=== PATIENT | female | born 1960 | race American Indian/Alaskan Native ===

== ENCOUNTER 2018-11-01 10:45 | Emergency (ER) | payer OTHER ==
[2018-11-01 13:16] LABS: ANION GAP 14.9; CHLORIDE,CL 103 mmol/L (101-111); SODIUM,NA 136 mmol/L (135-145)
[2018-11-01 13:38] VITALS: BP 121/67
--- NOTE | 2018-11-01 13:55 | EDM.PDOC ---
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 She states the bleeding has been spotting since yesterday. She states she has been in menopause for about 10 years. Patient takes Coumadin after a stroke 14 years ago and is concerned that she may begin to bleed much more. Patient denies dizziness, weakness, cramping, fever, or chills. Denies SOB, CP, N/V/D. Onset: Gradual - Related Data Allergies Allergy/AdvReac Type Severity Reaction Status Date / Time ibuprofen [From Motrin] Allergy Unknown Anaphylactic Verified 11/01/18 11:12 Shock Home Meds: Home Meds Fenofibrate Nanocrystallized [Tricor] 72.5 mg PO DAILY 10/25/16 [History] Warfarin Sodium [Coumadin] 10 mg PO .M,T,W,F,SA 10/25/16 [History] Warfarin [Coumadin] 12.5 mg PO .REED,TH 11/01/18 [History] Past Medical History HEENT History: Reports: Allergic Rhinitis, Sinusitis Cardiovascular History: Reports: None Respiratory History: Reports: None Other Respiratory History: pulmonary embolism Gastrointestinal History: Reports: GERD Genitourinary History: Reports: None 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: 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: , 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 Musculoskeletal History: Reports: None Neurological History: Reports: CVA Psychiatric History: Reports: None Endocrine/Metabolic History: Reports: None Hematologic History: Reports: Anticoagulation Therapy Immunologic History: Reports: None Oncologic (Cancer) History: Reports: None Dermatologic History: Reports: None - Infectious Disease History Infectious Disease History: Reports: Measles - Past Surgical History HEENT Surgical History: Reports: None Cardiovascular Surgical History: Reports: None Respiratory Surgical History: Reports: None GI Surgical History: Reports: Cholecystectomy Neurological Surgical History: Reports: None Musculoskeletal Surgical History: Reports: None Social & Family History - Family History Family Medical History: Noncontributory - Tobacco Use Smoking Status *Q: Current Every Day Smoker Years of Tobacco use: 20 Packs/Tins Daily: 0.5 Second Hand Smoke Exposure: No - Caffeine Use Caffeine Use: Reports: Coffee - Recreational Drug Use Recreational Drug Use: No ED ROS GENERAL - Review of Systems Review Of Systems: ROS reveals no pertinent complaints other than HPI. ED EXAM, GENERAL - Physical Exam Exam: See Below Exam Limited By: No Limitations General Appearance: Alert, WD/WN, No Apparent Distress Eye Exam: Bilateral Eye: EOMI, Normal Inspection Ears: Normal External Exam, Hearing Grossly Normal Nose: Normal Inspection Throat/Mouth: Normal Inspection, Normal Voice, No Airway Compromise Head: Atraumatic, Normocephalic Neck: Normal Inspection, Supple, Non-Tender, Full Range of Motion Respiratory/Chest: No Respiratory Distress, Lungs Clear, Normal Breath Sounds, No Accessory Muscle Use, Chest Non-Tender Cardiovascular: Normal Peripheral Pulses, Regular Rate, Rhythm, No Edema, No Gallop, No JVD, No Murmur, No Rub Peripheral Pulses: 2+: Radial (L), Radial (R) GI/Abdominal: Normal Bowel Sounds, Soft, Non-Tender, No Organomegaly, No Distention, No Abnormal Bruit, No Mass, Pelvis Stable (Female) Exam: Deferred Rectal (Female) Exam: Deferred Back Exam: Normal Inspection, Full Range of Motion, NT Extremities: Normal Inspection, Normal Range of Motion, Non-Tender, Normal Capillary Refill, No Pedal Edema Neurological: Alert, Oriented, CN II-XII Intact, Normal Cognition, Normal Gait, Normal Reflexes, No Motor/Sensory Deficits Psychiatric: Normal Affect, Normal Mood Skin Exam: Warm, Dry, Intact, Normal Color, No Rash Lymphatic: No Adenopathy Course - Vital Signs Last Recorded V/S: Last Vital Signs Temp 96.5 F 11/01/18 13:37 Pulse 65 11/01/18 13:37 Resp 16 11/01/18 13:37 BP 121/67 11/01/18 13:37 Pulse Ox 96 11/01/18 13:37 - Orders/Labs/Meds Labs: Laboratory Tests 11/01/18 11/01/18 11/01/18 Range/Units 12:50 12:50 12:50 WBC 6.8 (5.0-10.0) 10^3/uL RBC 5.56 H (4.2-5.4) 10^6/uL Hgb 15.9 (12.0-16.0) g/dL Hct 47.0 (37.0-47.0) % MCV 84.5 (80-100) fL MCH 28.6 (27.0-34.0) pg MCHC 33.8 (33.0-35.0) g/dL Plt Count 196 (150-450) 10^3/uL Neut % (Auto) 61.8 (42.2-75.2) % Lymph % (Auto) 29.4 (20.5-50.1) % Mcculloch % (Auto) 7.2 (2-8) % Eos % (Auto) 0.9 L (1.0-3.0) % Baso % (Auto) 0.7 (0.0-1.0) % Sodium 136 (135-145) mmol/L Potassium 3.9 (3.6-5.0) mmol/L Chloride 103 (101-111) mmol/L Carbon Dioxide 22.0 (21.0-31.0) mmol/L Anion Gap 14.9 BUN 12 (7-18) mg/dL Creatinine 0.7 (0.6-1.3) mg/dL Est Cr Clr Drug Dosing 84.15 mL/min Estimated GFR (MDRD) > 60 BUN/Creatinine Ratio 17.14 Glucose 91 (74-105) mg/dL Calcium 9.0 (8.4-10.2) mg/dl Total Bilirubin 0.6 (0.2-1.0) mg/dL AST 27 (10-42) IU/L ALT 25 (10-60) IU/L Alkaline Phosphatase 79 (42-121) IU/L Total Protein 7.1 (6.7-8.2) g/dl Albumin 4.0 (3.2-5.5) g/dl Globulin 3.1 Albumin/Globulin Ratio 1.29 TSH, Ultra Sensitive 2.06 (0.45-5.33) uIu/mL - Radiology Interpretation Free Text/Narrative:: Ultrasound: Endometrial Hyperplasia 1.6cm See rad report Departure - Departure Time of Disposition: 14:44 Disposition: Home, Self-Care 01 Condition: Fair Clinical Impression: Endometrial hyperplasia, Post-menopausal bleeding - Discharge Information *PRESCRIPTION DRUG MONITORING PROGRAM REVIEWED*: No *COPY OF PRESCRIPTION DRUG MONITORING REPORT IN PATIENT FLEX: No Instructions: Endometrial Hyperplasia, Abnormal Uterine Bleeding, [id number] , Postmenopausal Bleeding, [id number] Referrals: PCP,None [Primary Care Provider] - Forms: ED Department Discharge Additional Instructions: You will be called with an appointment with Dr. Hinojosa in [place] next week. Return to the ER if the bleeding increases
--- NOTE | 2018-11-01 15:24 | US ---
Clinical history: 58-year-old obese postmenopausal female on Coumadin was experienced 3 days of postmenopausal "bleeding". (Last menstrual period 10 years ago) Interpretation: Midline uterus normal size and configuration slightly anteverted behind the urinary bladder. No sign of myometrial fibroid mass lesion. Abnormally thickened endometrium (proliferation?) with a "stripe" measuring 16.3 mm. No endometrial polyp or mass and no abnormal fluid accumulation in the endometrial canal. Small ovaries, bilaterally, consistent with patient's age and hormonal status. No adnexal mass lesion or free fluid in the pelvis. Right ovary measures 2.3 cm L x 2.2 cm W x 1.4 cm AP diameter. Left ovary measures 2.4 cm L x 2.2 cm W x 1.3 cm AP diameter. CONCLUSION: Abnormally thick uterine endometrium. Otherwise negative postmenopausal pelvic sonogram.
== END 2018-11-01 15:05 | disposition home or self-care (01) ==
LOC: DL.ED 10:45
DX: N85.00 Endometrial hyperplasia, unspecified (principal); N95.0 Postmenopausal bleeding; F17.210 Nicotine dependence, cigarettes, uncomplicated; Z79.01 Long term (current) use of anticoagulants; Z88.6 Allergy status to analgesic agent
CPT/HCPCS: 36415; 76856; 80053; 84443; 85025; 99284

== ENCOUNTER 2019-07-21 21:38 | Emergency (ER) | payer OTHER ==
[2019-07-21 22:31] LABS: ANION GAP 14.6; CHLORIDE,CL 103 mmol/L (101-111); SODIUM,NA 137 mmol/L (135-145)
[2019-07-22] MEDS ORDERED: Sulfamethoxazole/Trimethoprim 800-160 MG Tab PO ONE (00:27)
--- NOTE | 2019-07-22 00:32 | EDM.PDOC ---
ED HPI GENERAL MEDICAL PROBLEM - General Chief Complaint: Neuro Symptoms/Deficits Stated Complaint: DISORIENTATED/DIZZY Time Seen by Provider: 07/21/19 21:45 Source of Information: Reports: Patient History Limitations: Reports: No Limitations - History of Present Illness INITIAL COMMENTS - FREE TEXT/NARRATIVE: ED ambulatory with c/o feeling dizzy when changing positions and foggy, poor balance this am, better now, Noticed balance more with positional changes. No symptoms when at rest sitting or lying. Notes yesterday was attributing sx to working greater than 70 hours per week As symptoms continued today after resting yesterday wanted to be checked. Remote hx 15 years ago of CVA,, bleed with no residual. On coumadin for hx of PE following CVA> INR usually around 2.5 and has not had any recent dose changes. No c/ weakness, No speech difficulty. Some sinus congestion. No chest pain, cough, no swelling. Appetite good. Urine cloudy occasional burning past few days. 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) Lower Posterior Head Pain Score (Numeric/FACES): 3 - Related Data Allergies Allergy/AdvReac Type Severity Reaction Status Date / Time ibuprofen [From Motrin] Allergy Unknown Anaphylactic Verified 07/21/19 22:36 Shock Home Meds: Home Meds Fenofibrate Nanocrystallized [Tricor] 72.5 mg PO DAILY 10/25/16 [History] Warfarin Sodium [Coumadin] 10 mg PO .M,T,W,F,SA 10/25/16 [History] Warfarin [Coumadin] 12.5 mg PO .REED,TH 11/01/18 [History] Past Medical History HEENT History: Reports: Allergic Rhinitis, Sinusitis Cardiovascular History: Reports: High Cholesterol Respiratory History: Reports: Other (See Below) Other Respiratory History: bilateral pulmonary embolism Gastrointestinal History: Reports: GERD Genitourinary History: Reports: None 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: , 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 Musculoskeletal History: Reports: None Neurological History: Reports: CVA Other Neuro History: 07/21/19 hemorrhagic stroke 15 years ago Psychiatric History: Reports: None Endocrine/Metabolic History: Reports: None Hematologic History: Reports: Anticoagulation Therapy, Bleeding Disorder Other Hematologic History: [id number] Immunologic History: Reports: None Oncologic (Cancer) History: Reports: None Dermatologic History: Reports: None - Infectious Disease History Infectious Disease History: Reports: Measles - Past Surgical History HEENT Surgical History: Reports: None Cardiovascular Surgical History: Reports: None Respiratory Surgical History: Reports: None GI Surgical History: Reports: Cholecystectomy Neurological Surgical History: Reports: None Musculoskeletal Surgical History: Reports: None Social & Family History - Family History Family Medical History: Noncontributory - Tobacco Use Smoking Status *Q: Current Every Day Smoker Years of Tobacco use: 2 Packs/Tins Daily: 1 - Caffeine Use Caffeine Use: Reports: Coffee, Tea - Recreational Drug Use Recreational Drug Use: No ED ROS GENERAL - Review of Systems Review Of Systems: ROS reveals no pertinent complaints other than HPI. ED EXAM, NEURO - Physical Exam Exam: See Below Exam Limited By: No Limitations General Appearance: Alert, No Apparent Distress, Obese Eye Exam: Bilateral Eye: EOMI, PERRL Ears: Normal External Exam, Hearing Grossly Normal, Normal TMs Nose: Normal Inspection Throat/Mouth: Normal Oropharynx Head Exam: Atraumatic, Normocephalic Neck: Normal Inspection, Full Range of Motion Respiratory/Chest: No Respiratory Distress, Lungs Clear, Normal Breath Sounds Cardiovascular: Normal Peripheral Pulses, Regular Rate, Rhythm, No Edema GI/Abdominal: Normal Bowel Sounds, Soft Neurological: Alert, CN II-XII Intact, Normal Plantar Flexion, Normal Gait, Oriented x 3 Back Exam: Normal Inspection Psychiatric: Anxious Skin Exam: Warm, Dry, Intact, Normal Color Course - Vital Signs Last Recorded V/S: Last Vital Signs Temp 98.3 F 07/22/19 00:49 Pulse 78 07/22/19 00:49 Resp 18 07/22/19 00:49 BP 119/67 07/22/19 00:49 Pulse Ox 100 07/22/19 00:49 Orthostatic Blood Pressure [ 128/80 Standing] Orthostatic Blood Pressure [ 123/74 Sitting] Orthostatic Blood Pressure [ 119/51 Supine] - Orders/Labs/Meds Orders: Active Orders 24 hr Category Date Time Status Blood Glucose Check, Bedside [RC] ONETIME Care 07/21/19 21:52 Active EKG Documentation Completion [RC] URGENT Care 07/21/19 21:52 Active Orthostatic Vital Signs [RC] ASDIRECTED Care 07/21/19 22:08 Active Head wo Cont [CT] Urgent Exams 07/21/19 21:52 Taken CULTURE URINE [RM] Urgent Lab 07/21/19 23:50 Received Labs: Laboratory Tests 07/21/19 07/21/19 07/21/19 Range/Units 22:00 22:00 22:00 WBC 9.6 (5.0-10.0) 10^3/uL RBC 5.82 H (4.2-5.4) 10^6/uL Hgb 16.7 H (12.0-16.0) g/dL Hct 49.6 H (37.0-47.0) % MCV 85.2 (80-100) fL MCH 28.7 (27.0-34.0) pg MCHC 33.7 (33.0-35.0) g/dL Plt Count 220 (150-450) 10^3/uL Neut % (Auto) 61.0 (42.2-75.2) % Lymph % (Auto) 31.6 (20.5-50.1) % Antelope % (Auto) 5.6 (2-8) % Eos % (Auto) 1.3 (1.0-3.0) % Baso % (Auto) 0.5 (0.0-1.0) % PT 27.5 H D (9.0-12.0) SEC INR 2.8 H (0.9-1.2) Sodium 137 (135-145) mmol/L Potassium 3.6 (3.6-5.0) mmol/L Chloride 103 (101-111) mmol/L Carbon Dioxide 23.0 (21.0-31.0) mmol/L Anion Gap 14.6 BUN 12 (7-18) mg/dL Creatinine 0.9 (0.6-1.3) mg/dL Est Cr Clr Drug Dosing TNP Estimated GFR (MDRD) > 60 BUN/Creatinine Ratio 13.33 Glucose 130 H (74-105) mg/dL POC Glucose (70-105) mg/dl Calcium 8.7 (8.4-10.2) mg/dl Total Bilirubin 0.4 (0.2-1.0) mg/dL AST 30 (10-42) IU/L ALT 26 (10-60) IU/L Alkaline Phosphatase 92 (42-121) IU/L Troponin I < 0.02 (0.00-0.02) ng/ml Total Protein 6.8 (6.7-8.2) g/dl Albumin 3.9 (3.2-5.5) g/dl Globulin 2.9 Albumin/Globulin Ratio 1.34 TSH, Ultra Sensitive (0.45-5.33) uIu/mL Urine Color (YELLOW) Urine Appearance (CLEAR) Urine pH (5.0-9.0) Ur Specific [place] (1.005-1.030) Urine Protein (NEGATIVE) Urine Glucose (UA) (NEGATIVE) Urine Ketones (NEGATIVE) Urine Occult Blood (NEGATIVE) Urine Nitrite (NEGATIVE) Urine Bilirubin (NEGATIVE) Urine Urobilinogen (0.2-1.0) mg/dL Ur Leukocyte Esterase (NEGATIVE) Urine RBC /HPF Urine WBC (0-5/HPF) /HPF Ur Epithelial Cells (NOT SEEN) /HPF Amorphous Sediment (NOT SEEN) /HPF Urine Bacteria (0-FEW/HPF) /HPF Urine Mucus (NOT SEEN) /LPF 07/21/19 07/21/19 07/21/19 Range/Units 22:00 22:01 23:50 WBC (5.0-10.0) 10^3/uL RBC (4.2-5.4) 10^6/uL Hgb (12.0-16.0) g/dL Hct (37.0-47.0) % MCV (80-100) fL MCH (27.0-34.0) pg MCHC (33.0-35.0) g/dL Plt Count (150-450) 10^3/uL Neut % (Auto) (42.2-75.2) % Lymph % (Auto) (20.5-50.1) % Antelope % (Auto) (2-8) % Eos % (Auto) (1.0-3.0) % Baso % (Auto) (0.0-1.0) % PT (9.0-12.0) SEC INR (0.9-1.2) Sodium (135-145) mmol/L Potassium (3.6-5.0) mmol/L Chloride (101-111) mmol/L Carbon Dioxide (21.0-31.0) mmol/L Anion Gap BUN (7-18) mg/dL Creatinine (0.6-1.3) mg/dL Est Cr Clr Drug Dosing Estimated GFR (MDRD) BUN/Creatinine Ratio Glucose (74-105) mg/dL POC Glucose 123 H (70-105) mg/dl Calcium (8.4-10.2) mg/dl Total Bilirubin (0.2-1.0) mg/dL AST (10-42) IU/L ALT (10-60) IU/L Alkaline Phosphatase (42-121) IU/L Troponin I (0.00-0.02) ng/ml Total Protein (6.7-8.2) g/dl Albumin (3.2-5.5) g/dl Globulin Albumin/Globulin Ratio TSH, Ultra Sensitive 3.44 (0.45-5.33) uIu/mL Urine Color Yellow (YELLOW) Urine Appearance Slightly cloudy (CLEAR) Urine pH 6.0 (5.0-9.0) Ur Specific [place] 1.015 (1.005-1.030) Urine Protein Negative (NEGATIVE) Urine Glucose (UA) Negative (NEGATIVE) Urine Ketones Negative (NEGATIVE) Urine Occult Blood Negative (NEGATIVE) Urine Nitrite Negative (NEGATIVE) Urine Bilirubin Negative (NEGATIVE) Urine Urobilinogen 0.2 (0.2-1.0) mg/dL Ur Leukocyte Esterase Moderate H (NEGATIVE) Urine RBC 0-5 /HPF Urine WBC 20-30 H (0-5/HPF) /HPF Ur Epithelial Cells Few (NOT SEEN) /HPF Amorphous Sediment Rare (NOT SEEN) /HPF Urine Bacteria Few (0-FEW/HPF) /HPF Urine Mucus Rare (NOT SEEN) /LPF Meds: Medications Discontinued Medications Generic Name Dose Route Start Last Admin Trade Name Freq PRN Reason Stop Dose Admin Trimethoprim/Sulfamethoxazole 1 tab 07/22/19 00:27 07/22/19 00:42 Septra Ds PO 07/22/19 00:28 1 tab ONETIME ONE Administration - Radiology Interpretation Free Text/Narrative:: [facility] [place] [facility] Final Radiology Report Call: [phone] assistance Online chat: [email or web address] Name: BELLA COSBY Age: 59Years F Date: 07/21/2019 SSN: -- : [id number] Study: CT HEAD WO Requesting Physician: TRINO ESTES Images: [phone] Addl Studies: Provided Clinical History: Contrast: Without Contrast Medium: Contrast Amount: Contrast Method: Page 1 of 2 PROCEDURE INFORMATION: Exam: CT Head Without Contrast Exam date and time: 07/21/2019 10:19 PM Clinical history: 59 years old, female; Other: Dizzy x 2 days, HX of CVA 15 years ago, on blood thinners TECHNIQUE: Imaging protocol: Computed tomography of the head without contrast. Radiation optimization: All CT scans at this facility use at least one of these dose optimization techniques: automated exposure control; mA and/or kV adjustment per patient size (includes targeted exams where dose is matched to clinical indication); or iterative reconstruction. COMPARISON: No relevant prior studies available. FINDINGS: Brain: Normal. No hemorrhage. Unremarkable white matter. No mass effect. Ventricles: Normal. No hydrocephalus. Bones/joints: Normal. Skull base and overlying calvarium are intact. No lytic or osteosclerotic lesions. Sinuses: Visualized sinuses are unremarkable. No fluid levels. Mastoid air cells: Visualized mastoid air cells are well aerated. Soft tissues: Unremarkable. IMPRESSION: No acute intracranial process. Thank you for allowing us to participate in the care of your patient. Dictated and Authenticated by: Osvaldo Faye MD Departure - Departure Time of Disposition: 00:29 Disposition: Home, Self-Care 01 Condition: Good Clinical Impression: Chronic anticoagulation UTI (urinary tract infection) Qualifiers: Urinary tract infection type: acute cystitis Hematuria presence: without hematuria Qualified Code(s): N30.00 - Acute cystitis without hematuria - Discharge Information *PRESCRIPTION DRUG MONITORING PROGRAM REVIEWED*: No *COPY OF PRESCRIPTION DRUG MONITORING REPORT IN PATIENT FLEX: No Instructions: Urinary Tract Infection, Adult, [id number] Forms: ED Department Discharge Additional Instructions: bactrim DS one twice daily increase fluid intake follow up if symptoms worsen recheck INR one week - My Orders Last 24 Hours: My Active Orders 07/21/19 21:52 Blood Glucose Check, Bedside [RC] ONETIME EKG Documentation Completion [RC] URGENT Head wo Cont [CT] Urgent 07/21/19 22:08 Orthostatic Vital Signs [RC] ASDIRECTED 07/21/19 23:50 CULTURE URINE [RM] Urgent - Assessment/Plan Last 24 Hours: My Active Orders 07/21/19 21:52 Blood Glucose Check, Bedside [RC] ONETIME EKG Documentation Completion [RC] URGENT Head wo Cont [CT] Urgent 07/21/19 22:08 Orthostatic Vital Signs [RC] ASDIRECTED 07/21/19 23:50 CULTURE URINE [RM] Urgent
[2019-07-22 00:51] VITALS: BP 119/67; PULSE 78
== END 2019-07-22 00:51 | disposition home or self-care (01) ==
LOC: DL.ED 21:38
DX: N30.00 Acute cystitis without hematuria (principal); E78.00 Pure hypercholesterolemia, unspecified; F17.210 Nicotine dependence, cigarettes, uncomplicated; Z79.01 Long term (current) use of anticoagulants; Z88.6 Allergy status to analgesic agent
CPT/HCPCS: 36415; 70450; 80053; 81001; 82962; 84443; 84484; 85025; 85610; 87086; 93005; 99284; A9270

== ENCOUNTER 2020-06-02 16:51 | Emergency (ER) | payer OTHER ==
--- NOTE | 2020-06-02 18:54 | CT ---
PROCEDURE INFORMATION: Exam: CT Head Without Contrast Exam date and time: 06/02/2020 6:32 PM Age: 60 years old Clinical indication: Dizziness; Additional info: Dizzy TECHNIQUE: Imaging protocol: Computed tomography of the head without contrast. Radiation optimization: All CT scans at this facility use at least one of these dose optimization techniques: automated exposure control; mA and/or kV adjustment per patient size (includes targeted exams where dose is matched to clinical indication); or iterative reconstruction. COMPARISON: No relevant prior studies available. FINDINGS: Brain: There is no intracranial hemorrhage. There is no acute edema, mass effect or shift of the normally midline structures. The lind-white matter differentiation is preserved. There are no extra-axial fluid collections. Ventricles: The ventricles and sulci are age appropriate. Bones/joints: The calvarium is intact. Sinuses: The paranasal sinuses are normally aerated. Mastoid air cells: The mastoid air cells and middle ear cavities are normally aerated. Soft tissues: No soft tissue hematoma is identified. IMPRESSION: No acute intracranial pathology is identified.
--- NOTE | 2020-06-02 18:57 | CT ---
PROCEDURE INFORMATION: Exam: CT Cervical Spine Without Contrast Exam date and time: 06/02/2020 6:32 PM Age: 60 years old Clinical indication: Other: Dizzy TECHNIQUE: Imaging protocol: Computed tomography images of the cervical spine without contrast. Radiation optimization: All CT scans at this facility use at least one of these dose optimization techniques: automated exposure control; mA and/or kV adjustment per patient size (includes targeted exams where dose is matched to clinical indication); or iterative reconstruction. COMPARISON: No relevant prior studies available. FINDINGS: Vertebrae: There is straightening of the normal cervical lordosis. There is preservation of the vertebral body heights. No acute fracture is identified. There is no evidence of acute or healing fracture. The ring of C1 is intact. The dens is intact. 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 The facet joints are normally aligned and articulated. Discs/Spinal canal/Neural foramina: There is moderate degenerative disc disease, most pronounced at the C6-C7 level. The central canal caliber appears satisfactorily maintained. No significant neural foraminal stenosis is appreciated. Other bones/joints: The base of the skull is intact. The temporomandibular joints are normally articulated. Soft tissues: No large soft tissue hematoma is identified. Lungs: The lung apices are clear. IMPRESSION: Straightening of the normal cervical lordosis with degenerative disease at the atlantoaxial articulation and the C6-C7 disc level. No acute fracture or malalignment identified.
[2020-06-02 19:01] VITALS: BP 138/73; PULSE 83
[2020-06-02] MEDS ORDERED: Promethazine 25 MG/ML SDV IM ONE (19:28)
[2020-06-02] MEDS ORDERED: Meclizine 12.5 MG Tab PO ONE (19:30)
--- NOTE | 2020-06-02 19:42 | EDM.PDOC ---
ED HPI GENERAL MEDICAL PROBLEM - General Chief Complaint: General Stated Complaint: DIZZY, NAESEOUS Time Seen by Provider: 06/02/20 19:35 Source of Information: Reports: Patient History Limitations: Reports: No Limitations - History of Present Illness INITIAL COMMENTS - FREE TEXT/NARRATIVE: Patient is a 60 year old female with PMH significant for Stroke 15 years ago, PE , on Coumadin presents with complaints of dizziness, "feeling foggy". States she had a fall 05/27/2020 while hitching her trailer. She fell and hit her left leg. states she fell on her lunch box, denies LOC or head injury. She states she was seen in clinic Sunday05/28/2020 XR of the left LE was negative. she complains of neck pain and feeling nauseated. She has not vomited. She denies headaches, numbness or tingling in the UE/LE. She denies any weakness. Onset: Gradual - Related Data Allergies Allergy/AdvReac Type Severity Reaction Status Date / Time ibuprofen [From Motrin] Allergy Unknown Anaphylactic Verified 07/21/19 22:36 Shock Home Meds: Home Meds Fenofibrate Nanocrystallized [Tricor] 72.5 mg PO DAILY 10/25/16 [History] Warfarin Sodium [Coumadin] 10 mg PO .M,T,W,F,SA 10/25/16 [History] Warfarin [Coumadin] 12.5 mg PO .REED,TH 11/01/18 [History] Past Medical History HEENT History: Reports: Allergic Rhinitis, Sinusitis Cardiovascular History: Reports: High Cholesterol Respiratory History: Reports: Other (See Below) Other Respiratory History: bilateral pulmonary embolism Gastrointestinal History: Reports: GERD Genitourinary History: Reports: None [employer] History: Reports: , Spontaneous Musculoskeletal History: Reports: None Neurological History: Reports: CVA Other Neuro History: 07/21/19 hemorrhagic stroke 15 years ago Psychiatric History: Reports: None Endocrine/Metabolic History: Reports: None Hematologic History: Reports: Anticoagulation Therapy, Bleeding Disorder Other Hematologic History: [id number] Immunologic History: Reports: None Oncologic (Cancer) History: Reports: None Dermatologic History: Reports: None - Infectious Disease History Infectious Disease History: Reports: Measles - Past Surgical History HEENT Surgical History: Reports: None Cardiovascular Surgical History: Reports: None Respiratory Surgical History: Reports: None GI Surgical History: Reports: Cholecystectomy Neurological Surgical History: Reports: None Musculoskeletal Surgical History: Reports: None Social & Family History - Family History Family Medical History: Noncontributory - Tobacco Use Smoking Status *Q: Current Every Day Smoker Years of Tobacco use: 5 Packs/Tins Daily: 1 - Caffeine Use Caffeine Use: Reports: Coffee, Tea - Recreational Drug Use Recreational Drug Use: No ED ROS GENERAL - Review of Systems Review Of Systems: See Below Constitutional: Reports: No Symptoms HEENT: Reports: No Symptoms GI/Abdominal: Reports: Nausea. Denies: Vomiting Neurological: Reports: Dizziness ED EXAM, GENERAL - Physical Exam Exam: See Below Exam Limited By: No Limitations General Appearance: Alert, WD/WN, No Apparent Distress Eye Exam: Bilateral Eye: Normal Fundi, Normal Inspection, PERRL Ears: Normal External Exam, Normal Canal, Hearing Grossly Normal, Normal TMs Ear Exam: Bilateral Ear: Auricle Normal, Canal Normal, TM normal Nose: Normal Inspection, Normal Mucosa, No Blood Throat/Mouth: Normal Inspection, Normal Lips, Normal Teeth, Normal Gums, Normal Oropharynx, Normal Voice, No Airway Compromise Head: Atraumatic, Normocephalic Neck: Normal Inspection, Supple, Non-Tender, Full Range of Motion Respiratory/Chest: No Respiratory Distress, Lungs Clear, Normal Breath Sounds, No Accessory Muscle Use, Chest Non-Tender Cardiovascular: Normal Peripheral Pulses, Regular Rate, Rhythm, No Edema, No Gallop, No JVD, No Murmur, No Rub GI/Abdominal: Normal Bowel Sounds, Soft, Non-Tender, No Organomegaly, No Distention, No Abnormal Bruit, No Mass (Female) Exam: Deferred Rectal (Female) Exam: Deferred Back Exam: Normal Inspection, Full Range of Motion, NT Extremities: Normal Inspection, Normal Range of Motion, Non-Tender, Normal Capillary Refill, No Pedal Edema Neurological: Alert, Oriented, CN II-XII Intact, Normal Cognition, Normal Gait, Normal Reflexes, No Motor/Sensory Deficits Psychiatric: Normal Affect, Normal Mood Skin Exam: Warm, Dry, Intact, Normal Color, No Rash Lymphatic: No Adenopathy Course - Vital Signs Text/Narrative:: CT of the head and neck negative. Patient was given Phenergan and meclizine. Last Recorded V/S: Last Vital Signs Temp 98.5 F 06/02/20 19:00 Pulse 83 08/19/20 19:00 Resp 18 06/02/20 19:00 BP 138/73 06/02/20 19:00 Pulse Ox 96 06/02/20 19:00 - Orders/Labs/Meds Labs: Laboratory Tests 06/02/20 06/02/20 06/02/20 Range/Units 19:46 19:46 19:46 WBC 7.8 (5.0-10.0) 10^3/uL RBC 5.60 H (4.2-5.4) 10^6/uL Hgb 15.8 (12.0-16.0) g/dL Hct 47.3 H (37.0-47.0) % MCV 84.5 (80-100) fL MCH 28.2 (27.0-34.0) pg MCHC 33.4 (33.0-35.0) g/dL Plt Count 215 (150-450) 10^3/uL Neut % (Auto) 59.2 (42.2-75.2) % Lymph % (Auto) 32.3 (20.5-50.1) % Pickett % (Auto) 7.2 (2-8) % Eos % (Auto) 1.0 (1.0-3.0) % Baso % (Auto) 0.3 (0.0-1.0) % PT 22.3 H (9.0-12.0) SEC INR 2.4 H (0.9-1.2) Sodium 141 (136-145) mmol/L Potassium 4.0 (3.5-5.1) mmol/L Chloride 105 (98-107) mmol/L Carbon Dioxide 26 (21-32) mmol/L Anion Gap 14.0 H (7-13) mEq/L BUN 13 (7-18) mg/dL Creatinine 0.88 (0.55-1.02) mg/dL Est Cr Clr Drug Dosing 65.28 mL/min Estimated GFR (MDRD) > 60 BUN/Creatinine Ratio 14.8 (No establ ref range) Glucose 94 (74-99) mg/dL Calcium 8.5 (8.5-10.1) mg/dL Total Bilirubin 0.4 (0.2-1.0) mg/dL AST 21 (15-37) U/L ALT 28 (14-59) U/L Alkaline Phosphatase 89 (46-116) U/L Total Protein 6.9 (6.4-8.2) g/dL Albumin 3.6 (3.4-5.0) g/dL Globulin 3.3 Albumin/Globulin Ratio 1.1 Meds: Medications Discontinued Medications Generic Name Dose Route Start Last Admin Trade Name Augustoq PRN Reason Stop Dose Admin Meclizine HCl 12.5 mg 06/02/20 19:30 06/02/20 19:54 Antivert PO 06/02/20 19:31 12.5 mg ONETIME ONE Administration Promethazine HCl 25 mg 06/02/20 19:28 06/02/20 19:54 Phenergan IM 06/02/20 19:29 25 mg ONETIME ONE Administration Departure - Departure Time of Disposition: 22:33 Disposition: Home, Self-Care 01 Condition: Good Clinical Impression: Dizziness - Discharge Information Referrals: PCP,None [Primary Care Provider] - Forms: ED Department Discharge Care Plan Goals: Drink plenty of water. Take Antivert at home. Return to ED if symptoms worsens. Follow up with PCP. Sepsis Event Note (ED) - Evaluation Sepsis Screening Result: No Definite Risk - Focused Exam Vital Signs: Vital Signs Temp Pulse Resp BP BP Pulse Ox 06/02/20 19:00 98.5 F 83 18 138/73 96 06/02/20 17:45 98.2 F 80 14 132/87 94 L
[2020-06-02 20:17] LABS: CHLORIDE,CL 105 mmol/L (98-107); SODIUM,NA 141 mmol/L (136-145)
== END 2020-06-02 20:34 | disposition home or self-care (01) ==
LOC: DL.ED 16:51
DX: R42 Dizziness and giddiness (principal); E78.00 Pure hypercholesterolemia, unspecified; F17.210 Nicotine dependence, cigarettes, uncomplicated; Z88.6 Allergy status to analgesic agent; Z86.73 Personal history of transient ischemic attack (TIA), and cerebral infarction without residual deficits; Z79.01 Long term (current) use of anticoagulants; Z79.899 Other long term (current) drug therapy; Z86.711 Personal history of pulmonary embolism
CPT/HCPCS: 36415; 70450; 72125; 80053; 85025; 85610; 96372; 99284; A9270; J2550

== ENCOUNTER 2024-02-28 08:56 | Emergency (ER) | payer BC, OTHER ==
[2024-02-28 09:06] LABS: BASOPHILS PERCENT AUTO 0.6 % (0.0-1.0); EOSINOPHILS PERCENT AUTO 0.7 % (1.0-3.0); HEMOGLOBIN 14.3 g/dL (12.0-16.0); LYMPHOCYTES PERCENT AUTO 16.2 % (20.5-50.1); MEAN CORPUSCULAR HEMOGLOBIN 28.4 pg (27.0-34.0); MEAN CORPUSCULAR HGB CONC 33.3 g/dL (33.0-35.0); MEAN CORPUSCULAR VOLUME 85.5 fL (80-100); MONOCYTES PERCENT AUTO 6.6 % (2-8); NEUTROPHILS PERCENT AUTO 75.9 % (42.2-75.2); PLATELET COUNT,PLT 220 10^3/uL (150-450); RED BLOOD CELL COUNT 5.03 10^6/uL (4.2-5.4)
[2024-02-28 09:28] LABS: ALBUMIN 3.6 g/dL (3.4-5.0); ANION GAP 15.1 mEq/L (7-13); BILIRUBIN TOTAL 0.4 mg/dL (0.2-1.0); BUN/CREATININE RATIO 13.1 (No establ ref range); CALCIUM 8.7 mg/dL (8.5-10.1); CREATININE 0.84 mg/dL (0.55-1.02); EST CRCL DRUG DOSING (CG) 65.8 mL/min; POTASSIUM,K 4.1 mmol/L (3.5-5.1); PROTEIN TOTAL,TP 7.3 g/dL (6.4-8.2)
[2024-02-28 09:36] LABS: INR 1.3 (0.9-1.2); PROTHROMBIN TIME 13.3 SEC (9.0-12.0)
[2024-02-28 09:58] VITALS: PULSE 81
[2024-02-28 09:59] VITALS: BP 123/68
== END 2024-02-28 10:00 | disposition home or self-care (01) ==
LOC: DL.ED 08:56
DX: H81.10 Benign paroxysmal vertigo, unspecified ear (principal); Z88.6 Allergy status to analgesic agent; Z79.01 Long term (current) use of anticoagulants; Z79.899 Other long term (current) drug therapy; Z86.73 Personal history of transient ischemic attack (TIA), and cerebral infarction without residual deficits; Z90.49 Acquired absence of other specified parts of digestive tract
CPT/HCPCS: 36415; 80053; 84484; 85025; 85610; 93005; 99284

== ENCOUNTER 2024-08-25 09:27 | Emergency (ER) | payer BC, OTHER ==
[2024-08-25] MEDS ORDERED: Sodium Chloride 0.9% 10 ML Syringe FLUSH PRN (10:19)
[2024-08-25] MEDS: Albuterol/Ipratropium 3.0-0.5 MG/3 ML Neb Soln NEB ONE (10:26)
[2024-08-25] MEDS: methylPREDNISolone Sodium Succinate 125 MG/2 ML SDV IM ONE (10:32)
[2024-08-25] MEDS: methylPREDNISolone Sodium Succinate 125 MG/2 ML SDV IVPUSH ONE (10:33)
[2024-08-25 10:39] LABS: BASOPHILS PERCENT AUTO 0.6 % (0.0-1.0); EOSINOPHILS PERCENT AUTO 0.2 % (1.0-3.0); HEMATOCRIT 47.8 % (37.0-47.0); HEMOGLOBIN 15.8 g/dL (12.0-16.0); MEAN CORPUSCULAR HEMOGLOBIN 28.1 pg (27.0-34.0); MEAN CORPUSCULAR HGB CONC 33.1 g/dL (33.0-35.0); MEAN CORPUSCULAR VOLUME 85.1 fL (80-100); MONOCYTES PERCENT AUTO 14.1 % (2-8); NEUTROPHILS PERCENT AUTO 60.1 % (42.2-75.2); PLATELET COUNT,PLT 182 10^3/uL (150-450); RED BLOOD CELL COUNT 5.62 10^6/uL (4.2-5.4); WHITE BLOOD CELL COUNT,WBC 5.1 10^3/uL (5.0-10.0)
[2024-08-25 10:58] LABS: INR 1.8 (0.9-1.2); PROTHROMBIN TIME 18.4 SEC (9.0-12.0); PTT,PARTIAL THROMBOPLSTIN TIME 49.2 SEC (22.0-34.0)
[2024-08-25 11:01] LABS: ALANINE AMINOTRANSFERASE,ALT 27 U/L (14-59); ALBUMIN 3.6 g/dL (3.4-5.0); ALKALINE PHOSPHATASE 109 U/L (46-116); ANION GAP 11.3 mEq/L (7-13); ASPARTATE AMNIOTRANSFERASE,AST 27 U/L (15-37); BILIRUBIN TOTAL 0.6 mg/dL (0.2-1.0); BLOOD UREA NITROGEN,BUN 6 mg/dL (7-18); BUN/CREATININE RATIO 6.5 (No establ ref range); CALCIUM 9.1 mg/dL (8.5-10.1); CARBON DIOXIDE,CO2 29 mmol/L (21-32); CHLORIDE,CL 102 mmol/L (98-107); CREATININE 0.93 mg/dL (0.55-1.02); D-DIMER QUANTITATIVE < 100 ng/mL (0-400); EST CRCL DRUG DOSING (CG) 56.46 mL/min; GLUCOSE RANDOM 108 mg/dL (70-99); MAGNESIUM 1.7 mg/dL (1.8-2.4); POTASSIUM,K 4.3 mmol/L (3.5-5.1); PROTEIN TOTAL,TP 7.3 g/dL (6.4-8.2); SODIUM,NA 138 mmol/L (136-145)
[2024-08-25 11:02] LABS: ESTIMATED GFR 68 mL/min (>=60)
[2024-08-25 11:05] LABS: LACTIC ACID 1.4 mmol/L (0.4-2.0)
[2024-08-25] MEDS ORDERED: Cefuroxime 250 MG Tab PO ONE ×2 (11:38→11:39)
[2024-08-25] MEDS ORDERED: Magnesium Oxide 400 MG Tab PO ONE (11:42)
[2024-08-25 11:44] VITALS: BP 152/65; PULSE 97
== END 2024-08-25 11:59 | disposition home or self-care (01) ==
LOC: DL.ED 09:27
DX: U07.1 COVID-19 (principal); J12.82 Pneumonia due to coronavirus disease 2019; Z90.49 Acquired absence of other specified parts of digestive tract; Z86.73 Personal history of transient ischemic attack (TIA), and cerebral infarction without residual deficits; Z87.891 Personal history of nicotine dependence; Z88.6 Allergy status to analgesic agent; Z79.01 Long term (current) use of anticoagulants; Z79.899 Other long term (current) drug therapy
CPT/HCPCS: 36415; 71046; 80053; 83605; 83735; 84484; 85025; 85379; 85610; 85730; 87428; 96372; 99284; 99285; J2919; J7620-GY